=== PATIENT | female | born 1995 | race Two or more races ===

== ENCOUNTER 2017-03-01 15:13 | Emergency (ER) | payer MEDICAID ==
[~2017-03-01] VITALS: Ht 170.2 cm; Wt 97.1 kg
[2017-03-01 16:26] LABS: Basophils # (auto) 0.1 uL; Basophils % (auto) 0.6 % (0.0-2.0); Eosinophils # (auto) 0.1 uL; Eosinophils % (auto) 1.4 % (0.0-7.0); Hematocrit 36.7 % (36.0-46.0); Hemoglobin 12.2 g/dL (12.2-16.2); Lymphocytes # (auto) 1.8 uL; Lymphocytes % (auto) 21.4 % (10.0-50.0); Mean Corpuscular Hgb Conc. 33.3 g/dL (32.0-36.0); Mean Corpuscular Volume 84.2 fL (80.0-100.0); Monocytes # (auto) 0.5 uL; Monocytes % (auto) 6.3 % (0.0-12.0); Neutrophils # (auto) 5.8 uL; Neutrophils % (auto) 70.3 % (37.0-80.0); Nucleated Red Blood Cells % 0.1 %; Platelet Count (auto) 304 10^3/uL (140-450); Red Cell Distribution Width 14.6 % (11.8-14.3); White Blood Cell 8.3 10^3/uL (4.4-10.8)
[2017-03-01 16:29] LABS: Urine Bilirubin Negative (Negative); Urine Blood 3+ /uL (Negative); Urine Color Red (Yellow); Urine Glucose Normal (Normal); Urine Ketone TRACE (Negative); Urine Nitrite POSITIVE (Negative); Urine RBC 2898 /hpf (0 - 4); Urine Urobilinogen Normal (Negative)
[2017-03-01 16:38] LABS: INR 0.97 (0.9-1.15); Partial Thromboplastin Time 27.2 sec (22.64-33.71); Prothrombin Time 10.6 sec (9.37-12.3)
[2017-03-01 16:48] LABS: Amylase 45 U/L (25-115)
[2017-03-01 16:50] LABS: Albumin 3.8 g/dL (3.4-5.0); BUN/Creatinine Ratio 14.3; Potassium 3.9 mmol/L (3.5-5.1)
[2017-03-01 16:53] LABS: Bilirubin, Total 0.8 mg/dL (0.2-1.0); Total Protein 8.6 g/dL (6.4-8.2)
[2017-03-01 20:26] VITALS: BP 117/72
[2017-03-01] MEDS ORDERED: cefTRIAXone SOD 1,000 MG VL IM ONE (21:45)
== END 2017-03-01 22:09 | disposition home or self-care (01) ==
LOC: ER 15:13
DX: N39.0 Urinary tract infection, site not specified (principal); N93.8 Other specified abnormal uterine and vaginal bleeding
CPT/HCPCS: 36415; 76830; 76856; 80053; 81001; 82150; 83690; 84702; 85025; 85610; 85730; 96372; 99285; J0696